=== PATIENT | male | born 1980 ===

== ENCOUNTER 2022-09-27 13:36 | Outpatient (CLI) | payer OTHER, SELFPAY | END 2022-09-27 13:37 | disposition home or self-care (01) | PROVIDERS: PCP Family Medicine; Visit Provider Family Medicine | DX: Z00.00 Encounter for general adult medical examination without abnormal findings (principal); Z13.6 Encounter for screening for cardiovascular disorders | CPT/HCPCS: 80048; 80061 ==

== ENCOUNTER 2024-07-29 08:24 | Outpatient (CLI) | payer OTHER, SELFPAY ==
--- NOTE | 2024-07-29 09:53 | P.ANES_ITS ---
Anesthesia Charges Start Date/Time Anesthesia Start Date: 07/29/24 Anesthesia Start Time: 09:02 Stop Date/Time Anesthesia Stop Date: 07/29/24 Anesthesia Stop Time: 09:52 Coding CPT Codes CPT Codes: KEVEN LWR INTST NDNH NOS - [id number] ([id number]) P1 - NORMAL HEALTHY PATIENT, QX - HARPSICHORD MAKER SVNan W/ MED DIRECTION, QK - CONFERENCE SERVICE COORDINATOR 2-4 CNCRNT KEVEN PROC
--- NOTE | 2024-07-29 09:53 | W.ANESCHARGE ---
Anesthesia Charges Start Date/Time Anesthesia Start Date: 07/29/24 Anesthesia Start Time: 09:02 Stop Date/Time Anesthesia Stop Date: 07/29/24 Anesthesia Stop Time: 09:52 Coding CPT Codes CPT Codes: KEVEN LWR INTST NDAK NOS - [id number] ([id number]) P1 - NORMAL HEALTHY PATIENT, QX - CASING MATERIAL WEIGHER SVNan W/ MED DIRECTION, QK - STONEHAND 2-4 CNCRNT KEVEN PROC
--- NOTE | 2024-07-29 10:14 | P.ANES_ITS ---
Anesthesia Charges Start Date/Time Anesthesia Start Date: 07/29/24 Anesthesia Start Time: 09:02 Stop Date/Time Anesthesia Stop Date: 07/29/24 Anesthesia Stop Time: 09:52 Coding CPT Codes CPT Codes: KEVEN LWR INTST NDMD NOS - [id number] ([id number]) P1 - NORMAL HEALTHY PATIENT, QK - CONTACT LENS TECHNICIAN 2-4 CNCRNT ANES PROC, QX - HAMMER ADJUSTER SVC W/ MED DIRECTION
--- NOTE | 2024-07-29 10:14 | W.ANESCHARGE ---
Anesthesia Charges Start Date/Time Anesthesia Start Date: 07/29/24 Anesthesia Start Time: 09:02 Stop Date/Time Anesthesia Stop Date: 07/29/24 Anesthesia Stop Time: 09:52 Coding CPT Codes CPT Codes: KEVEN LWR INTST NDWI NOS - [id number] ([id number]) P1 - NORMAL HEALTHY PATIENT, QK - SLATE SPLITTER 2-4 CNCRNT ANES PROC, QX - POWER PLANT SUPERVISOR SVC W/ MED DIRECTION
== END 2024-07-29 08:25 | disposition home or self-care (01) ==
LOC: OP CLINIC 08:25
PROVIDERS: PCP Family Medicine; Visit Provider Surgery
DX: Z12.11 Encounter for screening for malignant neoplasm of colon (principal); D12.7 Benign neoplasm of rectosigmoid junction
CPT/HCPCS: 00811; 45385; 88305; J2704